=== PATIENT | female | born 1970 | race Two or more races ===

== ENCOUNTER → 2019-10-04 | Outpatient (CLI) | payer OTHER ==
[2019-10-04 10:26] LABS: BASO # 0.1 x10^3/uL (0.0-0.2); BASO % 1 % (0-3); EOS # 0.1 x10^3/uL (0.0-0.7); EOS % 1 % (0-3); HEMATOCRIT 40.3 % (36.0-47.0); HEMOGLOBIN 12.9 g/dL (12.0-15.5); LYMPH # 2.6 x10^3/uL (1.0-4.8); LYMPH % 35 % (24-48); MEAN CORPUSCULAR HEMOGLOBIN 28 pg (25-35); MEAN CORPUSCULAR HGB CONC 32 g/dL (31-37); MEAN CORPUSCULAR VOLUME 89 fL (79-100); MONO # 0.5 x10^3/uL (0.0-1.1); MONO % 7 % (0-9); NEUT # 4.1 x10^3uL (1.8-7.7); NEUT % 56 % (31-73); PLATELET COUNT 267 x10^3/uL (140-400); RED BLOOD COUNT 4.55 x10^6/uL (3.50-5.40); RED CELL DISTRIBUTION WIDTH 14.4 % (11.5-14.5); WHITE BLOOD COUNT 7.4 x10^3/uL (4.0-11.0)
--- NOTE | 2019-10-04 11:40 | RAD ---
EXAM: Pelvic sonogram. HISTORY: Abnormal menstrual cycle. TECHNIQUE: Transabdominal and transvaginal sonographic imaging of the pelvis was performed. COMPARISON: None. FINDINGS: The uterus is normal in size. The endometrial stripe is normal in thickness, measuring 4 mm. The ovaries are obscured due to bowel gas. There is no pelvic free fluid. IMPRESSION: 1. Unremarkable uterus and endometrial stripe. 2. Obscured ovaries due to bowel gas. Electronically signed by: Mildred Holliday MD (10/04/2019 11:37 AM) [facility] [place]
[2019-10-04 21:06] LABS: FSH 41.6 mIU/mL (.); LUTEINIZING HORMONE 34.1 mIU/mL (.)
[2019-10-04 22:07] LABS: ESTRADIOL LEVEL <5.0 pg/mL (.)
== END | disposition home or self-care (01) ==
LOC: US 09:34
PROVIDERS: ATTEND Obstetrics & Gynecology
DX: N92.0 Excessive and frequent menstruation with regular cycle (principal)
CPT/HCPCS: 36415; 76830; 76856; 82670; 83001; 83002; 84443; 85025

== ENCOUNTER → 2020-03-27 | Outpatient (CLI) | payer OTHER ==
--- NOTE | 2020-03-27 14:41 | RAD ---
5 views lumbar spine without comparison for bilateral feet numbness, history of low back pain. FINDINGS: There is no fracture or acute osseous or alignment abnormality. Mild degenerative disc disease is seen at L2-3, L3-4, and to a minimal extent L5-S1. There is mild facet arthrosis in the lower lumbar levels. There is a bulky marginal osteophyte at L2-3 on the right. Aortic atherosclerosis is present. IMPRESSION: 1. No acute osseous abnormality. 2. Mild multilevel degenerative changes. Electronically signed by: Samir Michel MD (03/27/2020 2:37 PM) [id number]
== END | disposition home or self-care (01) ==
LOC: DXRAD 08:57
PROVIDERS: ATTEND Psychiatry & Neurology Neurology
DX: M47.816 Spondylosis without myelopathy or radiculopathy, lumbar region (principal); M51.37 Other intervertebral disc degeneration, lumbosacral region; M25.78 Osteophyte, vertebrae; I70.0 Atherosclerosis of aorta; R20.2 Paresthesia of skin
CPT/HCPCS: 72110